=== PATIENT | male | born 1985 | race Caucasian/White ===

== ENCOUNTER 2023-05-18 23:04 | Emergency (ER) | payer MEDICAID ==
[~2023-05-18] VITALS: Ht 182.9 cm; Wt 83.9 kg
[2023-05-18 23:05] VITALS: BP 115/68; PULSE 77; RESP 16; TEMP 98.6; O2SAT 97
[2023-05-18] MEDS ORDERED: KETOROLAC 60 MG/2 ML VIAL IM ONE (23:20)
[2023-05-18] MEDS: KETOROLAC 60 MG/2 ML VIAL IM ONE (23:44)
[2023-05-18 23:54] VITALS: BP 113/75; PULSE 59; RESP 12; O2SAT 100
[2023-05-19] MEDS: LIDOCAINE MPF 1% 10 MG/ML VIAL INJ ONE (00:11)
[2023-05-19] MEDS ORDERED: NAPR-54 PO (01:08)
== END 2023-05-19 00:17 | disposition home or self-care (01) ==
LOC: MED 23:04
DX: S62.393A Other fracture of third metacarpal bone, left hand, initial encounter for closed fracture (principal); S51.012A Laceration without foreign body of left elbow, initial encounter; S00.83XA Contusion of other part of head, initial encounter; Z79.899 Other long term (current) drug therapy; Y08.89XA Assault by other specified means, initial encounter; Y93.89 Activity, other specified; Y92.89 Other specified places as the place of occurrence of the external cause; Y99.8 Other external cause status
CPT/HCPCS: 12002; 70450; 73070; 73130; 96372; 99285; J1885; J2001; Q0092; 90715